=== PATIENT | male | born 1960 | race Caucasian/White ===

== ENCOUNTER 2017-02-25 11:12 | Day surgery (SDC) | payer OTHER ==
[~2017-02-25] VITALS: Ht 170.2 cm; Wt 90.7 kg
[~2017-02-25 11:12] MED LIST: ADV250INH IH; ALBU18HF INH; BUTA1CAP16 PO; DIF200 PO; ERGO2000 PO; FEXO180T85 PO; IPRA3AMP IH; LOPE2CAP PO; LORA0.5T PO; Lactated Ringer's 1,000 ML IV ONE; METH750T3 PO; MONT10TA20 PO; MORP15TA PO; PRD5T PO; PROM12.510 PO; SULF1TAB7 PO; TACR0.5C5 PO; TACR1CAP8 PO; URSO250T11 PO; ZOV800 PO; [UNRECOGNIZED DRUG - REMARK] PO
[2017-02-25] MEDS ORDERED: Propofol 10,000 mCg/mL 20 mL Inj ONE (11:13)
[2017-02-25 11:24] VITALS: BP 120/75; PULSE 67; O2SAT 97
[2017-02-25] MEDS ORDERED: Lactated Ringer's 1,000 ML IV SCH (11:56)
--- NOTE | 2017-02-25 11:56 | PCM.HPANE ---
Patient Data Date of Service: February 25, 2017 Surgeon Admitting Provider: Attending Provider:Bhupinder Reza MD Primary Care Physician:Hafsa Franklin PA-C Other Provider:Kristina Almonte Anesthesia Reason for Visit Nausea And Vomiting R11.2 Ht/WT & BMI Height (Feet): 5 Height (Inches): 7 Weight (Kilograms): 90.72 Body Mass Index 31.00 Allergies Coded Allergies: No Known Allergies (Verified Allergy, Unknown, 01/27/16) Past Anesthesia History Anesthesia History: Denies:: Abnormal Airway, Anesthesia Reactions, Difficult Intubation, Fam Anesthesia Reaction, Fam Malignant Hypertherm, Malignant Hyperthermia Diabetes History Hx Diabetes?: No MRSA MRSA: No Medications Hypertension Medication: No Home Meds Incl Beta Callie: No Reported Medications Albuterol Sulfate (Ventolin HFA Inhaler)200 Puff/18 Gm Inhaler1 Puff INH Q4 PRN For Wheezing #1 INHALER Ref 0 02/24/17 Promethazine 12.5 Mg Xtfuzt20.5 Mg PO 02/24/17 Lorazepam 0.5 Mg Tablet0.5 Mg PO HS PRN For Insomnia Ref 0 02/24/17 Loperamide 2 Mg Capsule2 Mg PO Q4H 02/24/17 Ergocalciferol (Vitamin D2) (Vitamin D2)2,000 Unit Tfitap61,000 Unit PO 02/24/17 Fexofenadine (Anayeli Allergy)180 Mg Ywhutu241 Mg PO DAILY Ref 0 02/24/17 Fluticasone/Salmeterol (Advair 250-50 Diskus)60 Puff/Inh Disk1 Puff IH BID #1 DISK Ref 0 02/24/17 Tacrolimus 0.5 Mg Capsule0.5 Mg PO Q EVENING 30 Days Ref 0 02/01/17 Morphine Sulfate 15 Mg Wfxrfp94 Mg PO Q4HRS PRN 01/05/17 [Multi W/Out Iron] No Conflict Check1 Tab PO DAILY 11/25/16 Morphine Sulfate 15 Mg Vhelxp66 Mg PO BID 11/25/16 Ursodiol 250 Mg Forwcy965 Mg PO BID 11/25/16 Acyclovir 800 Mg Zsn032 Mg PO BID Ref 0 11/25/16 Tacrolimus 1 Mg Capsule1 Mg PO QAM Ref 0 11/25/16 Sulfamethoxazole/Trimeth 800-160 mg (Bactrim DS)1 Each Tablet1 Tablet PO DAILY Ref 0 02/17/16 Methocarbamol 750 Mg Dafrfw748 Mg PO Q12 PRN For Pain Ref 0 02/16/16 Prednisone (PredniSONE)5 Mg Tab5 Mg PO DAILY Ref 0 12/30/15 Discontinued Reported Medications Ipratropium/Albuterol Sulfate (Iprat-Albut 0.5-3(2.5) mg/3 mL Inhalant Soln)3 Ml Ampul.neb3 Ml IH Q6 Ref 0 02/24/17 Fluconazole (Diflucan)200 Mg Fxl358 Mg PO DAILY Ref 0 02/24/17 Butalbital/Aspirin/Caff 50-325-40 mg (Fiorinal 50-325-40 mg)1 Each Capsule1 Capsule PO Q4H PRN For Pain Ref 0 02/24/17 Montelukast (Singulair)10 Mg Rqrndj97 Mg PO HS PRN ALLERGIES Ref 0 04/22/15 Calcium Carbonate/Vitamin D3 (Calcium 600 + Vit D Tablet)1 Each Tablet1 Tablet PO BID 11/25/16 Cholecalciferol (Vitamin D3) (Vitamin D)1,000 Unit Tablet1,000 Unit PO DAILY Ref 0 11/25/16 [Magnesium Plus 133MG] No Conflict Check6 Tab PO DAILY 11/25/16 [place]-3 Fatty Acids/Fish Oil ([place] 3 1,000 mg Softgel)1 Each Capsule2 Capsule PO BID 11/25/16 History History of ENT Problems?: No HEENT History: Denies:: Abnormal Airway Cataracts Difficult Intubation Dysphagia Hearing Problem Sinus Problem Denture Type: None Teeth Condition: Missing Teeth Hx of Heart Problems?: No Cardiovascular History: Positive for:: Edema (D/TO LYMPHOMA) Denies:: AICD Atrial Fibrillation Cardiac Surgery Chest Pain Congestive Heart Failure Heart Murmur Hypertension Irregular Heartbeat Pacemaker Rheumatic Fever Thrombophlebitis Valvular Heart Disease Hx of Respiratory Problem?: Yes Respiratory History: Positive for:: Asthma (SEASONAL ALLERGIES) Cough Dyspnea (DENIES SOB AT THIS TIME) Pneumonia Denies:: COPD Chest Surgery Emphysema Hemoptysis Tuberculosis Hx Neurologic Problems?: No Neurological History: Positive for:: Dizziness Denies:: Alzheimer's Disease CVA Dementia Headaches Parkinson's Disease Seizures Hx of GI Problems?: Yes Hx of Problems?: No Genitourinary History: Denies:: HX of Hemodialysis Kidney Stones Urinary Tract Infection HX of Peritoneal Dialysis: No Male Hx: Positive for:: Prostate Problems Denies:: Scrotal Mass Testicular Surgery Hx Musculoskeletal Problems?: Yes Musculoskeletal History: Positive for:: Back Injury Joint Replacement (BILATERAL KNEE) Denies:: Musculoskeletal Trauma Hx of Psycho/Social Problems?: No Psycho Social History: Denies:: Anxiety Bipolar Disorder Hx Depression Suicide Attempt Hx Surgeries?: No (KNEE REPLACEMENT 2014, PORTACATH PLACEMENT-2014) Hx Any Other Health Problems?: Yes Other History: Positive for:: Cancer (NHL) Hospitalization (PNEUMONIA) Denies:: Endocrine Disease Thyroid Disease History Blood Transfusions: Positive for:: Blood Transfusions Denies:: Blood Transfuse Reaction Hx Diabetes: No Hx Alcohol Use: Yes (rarely )Hx Substance Use: No Smoking Status: Former Smoker Have You Smoked inLast 12 mo: No Stop/Bang Treated for Sleep Apnea?: Yes Do You Have a CPAP Machine?: Yes RICHARD Risk Assessment: High Risk, =/>3 Yes Risk Assessment Category Category 1A: Patient has history of documented sleep apnea, and HAS NOT received any narcotic, sedative or anesthesia administration during this stay. Category 1B: Patient has history of documented sleep apnea, and HAS received any narcotic , sedative or anesthesia administration during this stay Category 2: Patient has SUSPECTED Obstructive Sleep Apnea, and HAS received any narcotic , sedative or anesthesia administration during this stay. Category 3: Patient has SUSPECTED Obstructive Sleep Apnea and HAS NOT received narcotic, sedative or anesthesia administration during this stay. Category 4: Outpatient in Procedural Areas with known sleep apnea or who screen positive for High Risk via the STOP/BANG questionnaire. Exam Exam Vital Signs Vital Signs Date Time Temp Pulse Resp B/P Pulse Ox O2 Delivery O2 Flow Rate FiO2 02/25/17 11:24 67 120/75 97 Room Air General Appearance: Alert, Oriented X3, Cooperative HEENT/AIRWAY: MP 2, Neck Movement (Full), Mouth Opening (Wide) Lungs: Clear to Auscultation, Normal Air Movement Heart: Regular Rate/Rhythm, Normal S1, Normal S2 Plan Impression Patient chart reviewed, patient interviewed and anesthestic plan with risks, benefits, and alternatives discussed, and informed consent obtained. NPO per Anesth. Guidelines: Yes ASA Physical Status: ASA3 Severe Disease Anesthetic Plan: MAC Bene/Risks/Altern/Consents: Yes HP Complete Prior to Induction: Yes Man Post MD February 25, 2017 11:56
[2017-02-25] MEDS ORDERED: MetoCLOpramide 5 mg/mL 2 mL Inj IVPUSH PRN (12:00)
[2017-02-25] MEDS ORDERED: Ondansetron 2 mg/mL 2 mL Inj IVPUSH PRN (12:00)
[2017-02-25 12:23] VITALS: BP 106/65; PULSE 69; RESP 16; O2SAT 94
[2017-02-25 12:33] VITALS: BP 103/71; PULSE 63; RESP 14; O2SAT 94
[2017-02-25 12:39] VITALS: BP 106/73; PULSE 63; RESP 14; O2SAT 97
--- NOTE | 2017-02-25 13:03 | PCM.ANEP1 ---
Post Anesthesia PACU Phase 1 Assessment Date of Service: February 25, 2017 Vital Signs Vital Signs Date Time Temp Pulse Resp B/P Pulse Ox O2 Delivery O2 Flow Rate FiO2 02/25/17 12:39 63 14 106/73 97 Room Air 02/25/17 12:33 63 14 103/71 94 Room Air 02/25/17 12:23 69 16 106/65 94 Room Air 02/25/17 11:24 67 120/75 97 Room Air Anesthetic Administered: MAC Level of Alertness: Awake, talking WITT's with Equal Strength: Yes Pain: No Nausea or Vomiting: No CV Function & Hydration Stable: Yes Airway Device: Oxygen Delivery: Room Air Lungs: Normal Air Movement PACU Phase 2 Assessment Complications: No Follow up Care: No Patient Instructions Provided: N/A Man Post MD February 25, 2017 13:03
--- NOTE | 2017-02-25 15:57 | ENDO ---
[address] [address] ENDOSCOPY PROCEDURE PATIENT: CHILO TINOCO : 1960 MR#: [id number] ADMIT: 02/25/2017 JOB ID: [id number] DATE: 02/25/2017 TYPE OF OPERATION: Esophagogastroduodenoscopy with biopsy. PREOPERATIVE DIAGNOSIS(ES): Nausea and vomiting. POSTOPERATIVE DIAGNOSIS(ES): Mild nonerosive gastritis. ANESTHESIA: Monitored anesthesia care. COMPLICATIONS: None. BLOOD LOSS: Minimal. DESCRIPTION OF PROCEDURE: After risks and benefits were explained to the patient, informed consent was obtained. After anesthesia administered, upper endoscope was inserted into mouth and intubated into the esophagus, stomach, second portion of duodenum. Mucosa carefully examined. After procedure was done, the scope withdrawn and procedure terminated. FINDINGS: Upon inspection of the esophagus, the esophagus was normal without masses, ulcers or lesions. Z-line located at 40 cm from incisors. Upon entering the stomach, there is a mild nonerosive gastritis that was seen. Retroflexion was normal. Duodenal bulb, first and second portion normal. Biopsies taken of the duodenum, antrum and body of the stomach. IMPRESSION: Mild nonerosive gastritis. RECOMMENDATIONS: 1. Await pathology results. 2. Followup in GI clinic as needed.
--- NOTE | 2017-03-03 15:49 | PATH ---
SURGICAL PATHOLOGY Attending Physician:Bhupinder Reza MD CASE STATUS: Signed Out PATIENT NAME: CHILO TINOCO PID: [id number] : 1960 DATE COLLECTED:02/25/2017 22:07 SPECIMEN: 1: Duodenum, Biopsy 2: Stomach, Antrum, Biopsy 3: Gastric, Biopsy CLINICAL HISTORY: 1). DUODENUM, GRAFT VS HOST 2). GASTRIC ANTRUM, GRAFT VS HOST 3). GASTRIC BODY, GRAFT VS HOST FINAL DIAGNOSIS: 1.DUODENUM, BIOPSY: DUODENAL MUCOSA WITH NO SIGNIFICANT DIAGNOSTIC ABNORMALITY, INCLUDING NO EVIDENCE OF APOPTOTIC INJURY. Negative for intraepithelial lymphocytosis or villous blunting. Negative for active inflammation, Giardia organisms, dysplasia, and malignancy. 2.STOMACH, ANTRUM, BIOPSY: ANTRAL MUCOSA WITH NO SIGNIFICANT DIAGNOSTIC ABNORMALITY, INCLUDING NO EVIDENCE OF APOPTOTIC INJURY. Negative for Helicobacter organisms. Negative for intestinal metaplasia. Negative for dysplasia and malignancy. 3.STOMACH, BODY, BIOPSY: BODY-TYPE MUCOSA WITH NO SIGNIFICANT DIAGNOSTIC ABNORMALITY, INCLUDING NO EVIDENCE OF APOPTOTIC INJURY. Negative for Helicobacter organisms. Negative for intestinal metaplasia. Negative for dysplasia and malignancy. ICD10 R10.9 GROSS DESCRIPTION: Received are three formalin-filled containers, each labeled with the patient' s name. 1. Received in formalin, labeled with the patient' s name and "duodenum", are two fragments of crump, soft tissue ranging in size from 0.1 x 0.1 x 0.1 cm to 0.2 x 0.1 x 0.1 cm. All fragments are totally submitted in cassette 1A. 2. Received in formalin, labeled with the patient' s name and "gastric antrum", is one fragment of crump, soft tissue measuring 0.2 x 0.2 x 0.2 cm. The fragment is totally submitted in cassette 2A. 3. Received in formalin, labeled with the patient' s name and "gastric body", are three fragments of crump, soft tissue ranging in size from 0.1 x 0.1 x 0.1 cm to 0.3 x 0.2 x 0.1 cm. All fragments are totally submitted in cassette 3A. (RL:[id number]) MICRO DESCRIPTION: See diagnosis. ICD-9 CODES: CPT CODES: 1: 26105 2: 29506 3: 60283 Electronically Signed Out Estelita Zaragoza MD [facility] [address], [place] [address] Technical component performed at [facility], [address], [place], [address]
== END 2017-02-25 23:59 | disposition home or self-care (01) ==
LOC: END 11:12
PROVIDERS: ATTEND Internal Medicine Gastroenterology
DX: K29.70 Gastritis, unspecified, without bleeding (principal); C83.30 Diffuse large B-cell lymphoma, unspecified site; E27.40 Unspecified adrenocortical insufficiency; Z79.52 Long term (current) use of systemic steroids; G47.33 Obstructive sleep apnea (adult) (pediatric); Z94.84 Stem cells transplant status; Z79.899 Other long term (current) drug therapy; J45.909 Unspecified asthma, uncomplicated; Z87.891 Personal history of nicotine dependence
CPT/HCPCS: 43239; J7120

== ENCOUNTER 2017-04-12 09:03 | Day surgery (SDC) | payer OTHER ==
[~2017-04-12] VITALS: Ht 171.4 cm; Wt 92.5 kg
[~2017-04-12 09:03] MED LIST changes: -DIF200 PO; +HECORIA PO; -LOPE2CAP PO; -TACR1CAP8 PO
[2017-04-12] MEDS ORDERED: Propofol 10,000 mCg/mL 20 mL Inj ONE (09:04)
[2017-04-12] MEDS ORDERED: fentaNYL-PF 50 mCg/mL 2 mL Inj ONE (09:04)
[2017-04-12 09:18] VITALS: BP 122/81; PULSE 74; RESP 16; O2SAT 96
--- NOTE | 2017-04-12 09:26 | PCM.HPANE ---
Patient Data Surgeon Admitting Provider: Attending Provider:Bhupinder Reza MD Primary Care Physician:Hafsa Franklin PA-C Other Provider:[place] Anesthesia Reason for Visit Colon Ca Screen Ht/WT & BMI Body Mass Index Allergies Coded Allergies: adhesive tape (Verified Allergy, Unknown, 04/11/17) Past Anesthesia History Anesthesia History: Denies:: Abnormal Airway, Anesthesia Reactions, Difficult Intubation, Fam Anesthesia Reaction, Fam Malignant Hypertherm, Malignant Hyperthermia Diabetes History Hx Diabetes?: No MRSA MRSA: No Medications Reported Medications Magnesium Amino Acid Chelate (Magnesium)27 Mg Ioweon39 Mg PO BID 04/12/17 Ergocalciferol (Vitamin D2) (Vitamin D2)2,000 Unit Knpzmz76,000 Unit PO 02/24/17 Tacrolimus 0.5 Mg Capsule0.5 Mg PO BID 30 Days Ref 0 02/01/17 Morphine Sulfate 15 Mg Fpinai12 Mg PO Q4HRS PRN 01/05/17 [Multi W/Out Iron] No Conflict Check1 Tab PO DAILY 11/25/16 Morphine Sulfate 15 Mg Vnyrsx66 Mg PO BID 11/25/16 Ursodiol 250 Mg Jbzcaf227 Mg PO BID 11/25/16 Acyclovir 800 Mg Ile849 Mg PO BID Ref 0 11/25/16 Sulfamethoxazole/Trimeth 800-160 mg (Bactrim DS)1 Each Tablet1 Tablet PO DAILY Ref 0 02/17/16 Prednisone (PredniSONE)5 Mg Tab20 Mg PO DAILY Ref 0 12/30/15 Discontinued Reported Medications Albuterol Sulfate (Ventolin HFA Inhaler)200 Puff/18 Gm Inhaler1 Puff INH Q4 PRN For Wheezing #1 INHALER Ref 0 04/11/17 Montelukast (Singulair)10 Mg Ryjgpu11 Mg PO HS Ref 0 04/11/17 Ipratropium/Albuterol Sulfate (Iprat-Albut 0.5-3(2.5) mg/3 mL Inhalant Soln)3 Ml Ampul.neb3 Ml IH Q6 Ref 0 04/11/17 [[place]] No Conflict Check1 Mg PO 04/11/17 Butalbital/Aspirin/Caff 50-325-40 mg (Fiorinal 50-325-40 mg)1 Each Capsule1 Capsule PO Q4H PRN Headache Ref 0 04/11/17 Fexofenadine (Anayeli Allergy)180 Mg Ihisea796 Mg PO DAILY Ref 0 04/11/17 Fluticasone/Salmeterol (Advair 250-50 Diskus)60 Puff/Inh Disk1 Puff IH BID #1 DISK Ref 0 04/11/17 Promethazine 12.5 Mg Qxovpr75.5 Mg PO 02/24/17 Lorazepam 0.5 Mg Tablet0.5 Mg PO HS PRN For Insomnia Ref 0 02/24/17 Methocarbamol 750 Mg Tablet1,500 Mg PO Q12 PRN For Pain Ref 0 02/16/16 Tacrolimus 1 Mg Capsule1 Mg PO QAM Ref 0 11/25/16 History History of ENT Problems?: No HEENT History: Denies:: Abnormal Airway Cataracts Difficult Intubation Dysphagia Hearing Problem Sinus Problem Denture Type: None Teeth Condition: Within Normal Limits Hx of Heart Problems?: No Cardiovascular History: Positive for:: Edema (D/TO LYMPHOMA) Denies:: AICD Atrial Fibrillation Cardiac Surgery Chest Pain Congestive Heart Failure Heart Murmur Hypertension Irregular Heartbeat Pacemaker Rheumatic Fever Thrombophlebitis Valvular Heart Disease Hx of Respiratory Problem?: Yes Respiratory History: Positive for:: Asthma (SEASONAL ALLERGIES) Cough Dyspnea (DENIES SOB AT THIS TIME) Pneumonia Denies:: COPD Chest Surgery Emphysema Hemoptysis Tuberculosis Hx Neurologic Problems?: No Neurological History: Positive for:: Dizziness Denies:: Alzheimer's Disease CVA Dementia Headaches Parkinson's Disease Seizures Hx of GI Problems?: Yes Hx of Problems?: No Genitourinary History: Denies:: HX of Hemodialysis Kidney Stones Urinary Tract Infection HX of Peritoneal Dialysis: No Male Hx: Positive for:: Prostate Problems Denies:: Scrotal Mass Testicular Surgery Hx Musculoskeletal Problems?: Yes Musculoskeletal History: Positive for:: Back Injury Joint Replacement (BILATERAL KNEE) Denies:: Musculoskeletal Trauma Hx of Psycho/Social Problems?: No Psycho Social History: Denies:: Anxiety Bipolar Disorder Hx Depression Suicide Attempt Hx Surgeries?: No (KNEE REPLACEMENT 2014, PORTACATH PLACEMENT-2014) Hx Any Other Health Problems?: Yes Other History: Positive for:: Cancer (NHL) Hospitalization (PNEUMONIA) Denies:: Endocrine Disease Thyroid Disease History Blood Transfusions: Positive for:: Blood Transfusions Denies:: Blood Transfuse Reaction Hx Diabetes: No Hx Alcohol Use: Yes (rarely )Hx Substance Use: No Smoking Status: Former Smoker Have You Smoked inLast 12 mo: No Stop/Bang Treated for Sleep Apnea?: Yes Do You Have a CPAP Machine?: Yes RICHARD Risk Assessment: High Risk, =/>3 Yes Risk Assessment Category Category 1A: Patient has history of documented sleep apnea, and HAS NOT received any narcotic, sedative or anesthesia administration during this stay. Category 1B: Patient has history of documented sleep apnea, and HAS received any narcotic , sedative or anesthesia administration during this stay Category 2: Patient has SUSPECTED Obstructive Sleep Apnea, and HAS received any narcotic , sedative or anesthesia administration during this stay. Category 3: Patient has SUSPECTED Obstructive Sleep Apnea and HAS NOT received narcotic, sedative or anesthesia administration during this stay. Category 4: Outpatient in Procedural Areas with known sleep apnea or who screen positive for High Risk via the STOP/BANG questionnaire. Exam Exam Vital Signs Vital Signs Date Time Temp Pulse Resp B/P Pulse Ox O2 Delivery O2 Flow Rate FiO2 04/12/17 09:18 36.3 74 16 122/81 96 Room Air General Appearance: Alert, Oriented X3, Cooperative, No Acute Distress HEENT/AIRWAY: MP 2 Lungs: Clear to Auscultation, Normal Air Movement Heart: Exam Unremarkable, Regular Rate/Rhythm, No Murmurs/Rubs/Gallops Plan Impression Patient chart reviewed, patient interviewed and anesthestic plan with risks, benefits, and alternatives discussed, and informed consent obtained. NPO per Anesth. Guidelines: Yes ASA Physical Status: ASA3 Severe Disease Anesthetic Plan: MAC Bene/Risks/Altern/Consents: Yes HP Complete Prior to Induction: Yes Eddie Taylor MD Apr 12, 2017 09:26
[2017-04-12] MEDS ORDERED: MAGN27TA2 PO (09:33)
[2017-04-12] MEDS ORDERED: Lactated Ringer's 1,000 ML IV SCH (10:16)
[2017-04-12] MEDS ORDERED: MetoCLOpramide 5 mg/mL 2 mL Inj IVPUSH PRN (10:20)
[2017-04-12] MEDS ORDERED: Ondansetron 2 mg/mL 2 mL Inj IVPUSH PRN (10:20)
[2017-04-12 10:30] VITALS: BP 118/72; PULSE 69; RESP 14; O2SAT 95
[2017-04-12 10:38] VITALS: BP 110/67; PULSE 65; RESP 12; O2SAT 94
--- NOTE | 2017-04-12 10:52 | PCM.ANEP1 ---
Post Anesthesia PACU Phase 1 Assessment Vital Signs Vital Signs Date Time Temp Pulse Resp B/P Pulse Ox O2 Delivery O2 Flow Rate FiO2 04/12/17 10:38 65 12 110/67 94 Room Air 04/12/17 10:30 69 14 118/72 95 Room Air 04/12/17 09:18 36.3 74 16 122/81 96 Room Air Anesthetic Administered: MAC Level of Alertness: Awake, talking WITT's with Equal Strength: Yes Pain: No Nausea or Vomiting: No CV Function & Hydration Stable: Yes Airway Device: Oxygen Delivery: Room Air Lungs: Clear to Auscultation, Normal Air Movement Dermatome Level: Full Sensation PACU Phase 2 Assessment Complications: No Follow up Care: N/A Patient Instructions Provided: Yes Eddie Taylor MD Apr 12, 2017 10:52
--- NOTE | 2017-04-12 11:12 | ENDO ---
[address] [address] ENDOSCOPY PROCEDURE PATIENT: CHILO TINOCO : 1960 MR#: [id number] ADMIT: 04/12/2017 JOB ID: [id number] DATE: 04/12/2017 TYPE OF OPERATION: Colonoscopy with hot snare polypectomy and biopsy. PREOPERATIVE DIAGNOSIS: 1. Weight loss. 2. Colorectal cancer screening. POSTOPERATIVE DIAGNOSIS(ES): 1. A 1 cm descending colon polyp removed by hot snare polypectomy. 2. A 2 mm ascending colon polyp removed by cold biopsy forceps. 3. Fine granularity was seen in the cecum, proximal ascending colon which was biopsied. ANESTHESIA: Monitored anesthesia care. COMPLICATIONS: None. BLOOD LOSS: Minimal. DESCRIPTION OF PROCEDURE: After risks and benefits were explained to the patient, informed consent was obtained. After anesthesia administered, colonoscope was then inserted from the rectum to cecum. Mucosa carefully examined. Prep of the patient was excellent. After the procedure was done, the scope was withdrawn and procedure terminated. FINDINGS: Upon inspection of the anus, no masses, hemorrhoids, ulcers or fissures are seen. Throughout the entire examination, there was a 1 cm descending colon polyp removed by hot snare polypectomy. There was a 2 mm ascending colon polyp, removed by cold biopsy forceps. There was a fine granularity seen in the cecum and proximal ascending colon which was biopsied. Retroflexion was normal. IMPRESSION: 1. A fine granularity of the cecum and proximal ascending colon status post biopsy. 2. A 1 cm descending colon polyp removed by hot snare polypectomy. 3. A 2 mm ascending colon polyp removed by cold biopsy. RECOMMENDATIONS: 1. If the 1 cm descending colon polyp is a tubular adenoma, then repeat colonoscopy in three years. Otherwise repeat colonoscopy in five years. 2. Await pathology results. 3. Followup in GI clinic as needed.
--- NOTE | 2017-04-14 09:34 | PATH ---
SURGICAL PATHOLOGY Attending Physician:Bhupinder Reza MD CASE STATUS: Signed Out PATIENT NAME: CHILO TINOCO PID: [id number] : 1960 DATE COLLECTED:04/12/2017 15:22 SPECIMEN: 1: Colon, Polyp 2: Colon, Biopsy 3: Colon, Polyp CLINICAL HISTORY: 1. DESCENDING COLON POLYP 2. PROXIMAL ASCENDING GRANULARITY BXS 3. ASCENDING COLON POLYP FINAL DIAGNOSIS: 1.DESCENDING COLON, POLYP, BIOPSY: TUBULAR ADENOMA; NEGATIVE FOR HIGH-GRADE DYSPLASIA. 2.PROXIMAL ASCENDING COLON GRANULARITY, BIOPSIES: SUPERFICIAL PORTIONS OF COLORECTAL MUCOSA X3 WITH A RARE LYMPHOID AGGREGATE AND NO DIAGNOSTIC ABNORMALITY. There is no evidence of active inflammation, granulomas, dysplasia, or malignancy. 3.ASCENDING COLON, POLYP, BIOPSY: PORTION OF TUBULAR ADENOMA X1; NEGATIVE FOR HIGH-GRADE DYSPLASIA. SUPERFICIAL PORTION OF COLORECTAL MUCOSA X1 WITH NO DIAGNOSTIC ABNORMALITY. [id number] GROSS DESCRIPTION: Received three formalin-filled containers, each labeled with the patient's name. 1. In a container labeled "descending colon polyp" consists of a 0.6 x 0.6 x 0.5 cm portion of tissue, bisected and entirely submitted in cassette 1A. 2. In a container labeled "2. Asc. gran.", specimen consists of two portions of tissue which aggregate to 0.3 x 0.3 x 0.2 cm. The specimen is entirely submitted in cassette 2A. 3. In a container labeled "descending colon polyp" consists of two portions of tissue which aggregate to 0.2 x 0.2 x 0.2 cm. The specimen is entirely submitted in cassette 3A. ([facility]:[id number]) MICRO DESCRIPTION: See diagnosis. ICD-9 CODES: CPT CODES: 1: 62553 2: 31608 3: 32130 Electronically Signed Out Ruby Cortes MD [facility] [address], [place] [address] Technical component performed at [facility], [address], [place], [address]
== END 2017-04-12 23:59 | disposition home or self-care (01) ==
LOC: END 09:03
PROVIDERS: ATTEND Internal Medicine Gastroenterology
DX: Z12.11 Encounter for screening for malignant neoplasm of colon (principal); D12.2 Benign neoplasm of ascending colon; D12.4 Benign neoplasm of descending colon; R63.4 Abnormal weight loss; J45.909 Unspecified asthma, uncomplicated
CPT/HCPCS: 45380; 45385; J2250; J3010; J7120